=== PATIENT | male | born 1955 | race Caucasian/White ===

== ENCOUNTER 2016-12-24 05:43 | Inpatient (IN) | payer BC ==
[~2016-12-24] VITALS: Ht 177.8 cm; Wt 75.8 kg
--- NOTE | ~2016-12-24 | DS ---
ADMIT: 12/24/2016 RM/LOC: 508 [facility] MR#: [id number] [facility] [address] [place] [place], [place] [address] CORNELL MARTINO [address] [place] [address] General Discharge Summary SEX: M AGE: 61 : 1955 ADMISSION DATE: 12/24/2016 DISCHARGE DATE: 12/26/2016 SERVICE: Neurosurgery. REASON FOR ADMISSION: 1. Low back pain. 2. Lumbar stenosis. 3. Foot drop. 4. Difficulty walking. PROCEDURES: Lumbar 3 through sacral 1 laminectomy. HOSPITAL COURSE: Mr. Martino tolerated his procedure well. Postoperatively, he was admitted to the Med/Surg floor for monitoring and care. He did work with Physical Therapy and Occupational Therapy and tolerated this quite well. Postop day #1, he was awake and alert. His vital signs were stable, he was moving all extremities x4 with 5/5 strength. His incision was clean, dry, and intact. His ANDREW drain was patent with serosanguineous drainage. He continued to work with Physical Therapy and Occupational Therapy. Postop day #2, his vital signs were stable, he was awake and alert, he was moving all extremities x4 with 5/5 strength. His ANDREW drain was patent with serosanguineous drainage and was discontinued without difficulty. He was ambulating urinating and defecating per his norm and was requesting discharge home. DISCHARGE CONDITION: Good. MEDICATIONS: 1. Percocet 5/325, 1 to 2 p.o. q.4 hours p.r.n. 2. Valium 5 mg 1 p.o. q.8 hours p.r.n. 3. Invega 3 mg daily. 4. Trazodone 200 mg at bedtime. 5. Clonazepam 1 mg b.i.d. p.r.n. 6. Fish oil [place]-3 300 mg daily. 7. Naproxen 220 mg b.i.d. 8. Propranolol 20 mg at bedtime. 9. Tramadol 50 mg q.8 hours p.r.n. 10.Nicotine 2 mg lozenges every 1 to 2 hours as needed p.r.n. ADMIT: 12/24/2016 RM/LOC: 508 [facility] MR#: [id number] [facility] [address] [place] [place], [place] [address] CORNELL MARTINO [address] [place] [address] General Discharge Summary SEX: M AGE: 61 : 1955 DISCHARGE INSTRUCTIONS: Per Dr. Huerta. He can have a regular diet. He may shower, he should not take any tub baths, he should pat his incision dry. He should not lift anything greater than 15 pounds[address] not drive until he is seen in clinic. He will call with any questions or concerns including neurological worsening, signs or symptoms infection, or any other issues. FOLLOWUP: He will follow up with Dr. Huerta in [place] in January. DISPOSITION: He was discharged home. Total liso-zq-jaff time for the discharge planning and care coordination for Mr. Martino was 30 minutes. Lili Wilkerson APRN / Fermin Huerta MD / jero JOB #: [id number] CC: Fermin Huerta MD, Attending Physician Eden Moss, Family Physician
[2016-12-27] MEDS ORDERED: INVEGA3 MG PO (10:58)
[2016-12-27] MEDS ORDERED: ALEVE220 MG PO (10:59)
[2016-12-27] MEDS ORDERED: KLONOPIN DPS1 MG PO (10:59)
[2016-12-27] MEDS ORDERED: DESYREL DPS100 MG PO (10:59)
[2016-12-27] MEDS ORDERED: OMEGA-3 DPS1000 MG PO (10:59)
[2016-12-27] MEDS ORDERED: PERCOCET 5 DPS1 TAB PO (11:00)
[2016-12-27] MEDS ORDERED: ULTRAM DPS50 MG PO (11:00)
[2016-12-27] MEDS ORDERED: NICORETTE2 MG PO (11:00)
[2016-12-27] MEDS ORDERED: INDERAL-DPS20 MG PO (11:00)
[2016-12-27] MEDS ORDERED: VALIUM-DPS5 MG PO (11:01)
--- NOTE | 2016-12-29 07:11 | OR ---
ADMIT: 12/24/2016 RM/LOC: 508 [facility] MR#: [id number] 26[address] [facility] [address] [place], [place] [address] CORNELL MCKINLEY [address] [place] [address] Operative/Delivery Room Report SEX: M AGE: 61 : 1955 SURGERY DATE: 12/24/2016 SURGEON: Fermin Heurta MD PREOPERATIVE DIAGNOSIS: Severe stenosis with neurogenic claudication, lumbar 3-4, lumbar 4-5, lumbar 5-sacral one. POSTOPERATIVE DIAGNOSIS: Severe stenosis with neurogenic claudication, lumbar 3-4, lumbar 4-5, lumbar 5-sacral one. PROCEDURE: Lumbar laminectomy with medial undercutting of the facets, lumbar 3-4, 4-5, and 5-1 for decompression of the thecal sac and nerve roots. DESCRIPTION OF PROCEDURE: After gaining informed consent, the patient was taken to the operative theater, placed under general endotracheal anesthesia in supine position. A time-out was utilized to ascertain the correct site and side of surgery as well as other pertinent patient historical information. Counts were obtained at the beginning and end of the case with no change betwixt the two. Antibiotics were given within 1 hour of incision. Fluoroscope was brought in the field, lumbar 3 through sacral 1 levels were delineated. Incision was then fashioned, this was then taken down to the thoracodorsal fascia, which was incised and then subperiosteal dissection was utilized taking this out over top of the spinous process, lamina, and the facets. Once this was prepared, self-retaining retractors were placed. Attention was turned to not damaging the facet capsules and then various curettes, rongeurs, and high-speed drill were used to resect the spinous process and lamina, undercutting the facets, resecting the heavily overgrown ligamentum flavum, taking this out widely and sounding into the neural foramina at lumbar 3-4, 4-5, and lumbar 5-sacral 1 bilaterally with no sign of further compression. Everything was widely evaluated to be decompressed. At this point, pristine hemostasis was obtained. Attention was turned to ADMIT: 12/24/2016 RM/LOC: 508 [facility] MR#: [id number] [facility] [address] [place], [place] [address] ARLEN CORNELL L [address] [place] [id number] Operative/Delivery Room Report SEX: M AGE: 61 : 1955 closure. A ANDREW drain was daylighted out, and the wound was closed with simple interrupted 0 Vicryl in thoracodorsal fascia, simple inverted interrupted 2-0 Vicryl in the hypodermic tissue, and subcuticular 3-0 Stratafix on the skin with Steri-Strips over that. COMPLICATIONS: None. ESTIMATED BLOOD LOSS: Charted. SPECIMEN: Posterior elements. DISPOSITION: Extubated and taken to postanesthesia care unit. Fermin Huerta MD/ jero JOB #: [id number] CC: Fermin Huerta, Attending Physician Eden Moss, Family Physician
== END 2016-12-26 13:55 | disposition home or self-care (01) | DRG 517 ==
LOC: 5MS 05:43 → WOR 05:43 → 5MS 09:14
PROVIDERS: ADMIT Neurological Surgery
PROC: 01NB0ZZ Release Lumbar Nerve, Open Approach (ICD-10-PCS; principal; 2016-12-24)
DX: M51.16 Intervertebral disc disorders with radiculopathy, lumbar region (principal); F31.9 Bipolar disorder, unspecified; F17.210 Nicotine dependence, cigarettes, uncomplicated; F10.21 Alcohol dependence, in remission; F41.0 Panic disorder [episodic paroxysmal anxiety]; M21.379 Foot drop, unspecified foot